=== PATIENT | female | born 1985 | race Caucasian/White ===

== ENCOUNTER 2024-11-18 12:55 | Emergency (ER) | payer OTHER, SELFPAY ==
[2024-11-18 13:11] VITALS: BP 131/85; PULSE 74; RESP 18; TEMP 36.9; O2SAT 100; BMI 22.3
--- NOTE | 2024-11-18 13:42 | ED_ITS ---
HPI - Burn/Smoke Inhalation <Shannon Gallardo PA-C - Last Filed: 11/18/24 14:12> General Chief complaint: Burn/Smoke Inhalation Stated complaint: burned right hand on pot Time Seen by Provider: 11/18/24 13:42 History of Present Illness HPI Narrative: 39-year-old female presents to the ED status post a burn injury to her right hand sustained just prior to arrival. Patient accidentally tried to lift the pot of a [employer] fleming without oven mitts, causing olson to the tips of her right digits 1,2,3 and 4. Full range of motion. Patient complains of pain to the tips of the fingers. Related Data Allergies Allergy/AdvReac Type Severity Reaction Status Date / Time No Known Drug Allergies Allergy Verified 11/18/24 13:11 Review of Systems <Shannon Gallardo PA-C - Last Filed: 11/18/24 14:12> Constitutional Constitutional: Denies chills, Denies fatigue, Denies fever(s), Denies frequent falls, Denies lethargy and Denies weakness Eyes Eyes: Denies change in vision, Denies eye discharge, Denies irritation and Denies loss of vision ENT Ears, Nose, Mouth, and Throat: Denies change in voice, Denies dizziness, Denies neck pain, Denies sore throat and Denies throat swelling Cardiovascular Cardiovascular: Denies chest pain, Denies irregular heart rhythm, Denies lightheadedness, Denies palpitations, Denies dyspnea, Denies dyspnea on exertion and Denies orthopnea Respiratory Respiratory: Denies cough, Denies dyspnea, Denies dyspnea on exertion and Denies wheezing Gastrointestinal Gastrointestinal: Denies abdominal pain, Denies change in bowel habits, Denies diarrhea, Denies nausea and Denies vomiting Musculoskeletal Musculoskeletal: Denies neck pain and Denies numbness Integumentary/Breasts Skin/Breast: Denies pruritus, Denies erythema, Denies rash and Denies wounds Comments: Burn to fingertips of right hand Neurologic Neurologic: Denies behavioral changes, Denies confusion, Denies dizziness, Denies frequent falls, Denies loss of vision, Denies numbness and Denies weakness Psychiatric Psychiatric: Denies anxiety, Denies behavioral changes, Denies confusion, Denies depression, Denies homicidal ideation and Denies suicidal ideation Endocrine Endocrine: Denies fatigue, Denies flushing and Denies palpitations Hematologic/Lymphatic Hematologic/Lymphatic: Denies easy bruising Allergic/Immunologic Allergic/Immunologic: Denies urticaria, Denies throat swelling and Denies wheezing Patient History <Shannon Gallardo PA-C - Last Filed: 11/18/24 14:12> Social History Smoking Status: Unknown if ever smoked Smoking Status: Unknown if ever smoked Exam <Shannon Gallardo PA-C - Last Filed: 11/18/24 14:12> Narrative Exam Narrative: Const General:?cooperative, healthy appearing and comfortable [facility] Head:?normal to inspection Ears:?hearing grossly normal bilaterally Nose:?external nose normal Face and sinus:?normal facial exam and sinuses nontender Mouth:?oral mucosae normal Throat:?posterior oropharynx normal Eyes General:?appearance normal, both eyes and all related structures Neck Neck:?normal visual inspection and no lymphadenopathy noted Resp Effort & Inspection:?normal respiratory effort Auscultation:?clear to auscultation bilaterally Cardio Rate:?regular rate Rhythm:?regular rhythm Integumentary Physical exam is consistent with superficial second-degree olson to digits 4, 3, 2 of the right hand as well as a first-degree burn to the tip of the thumb. Bl isters are noted in digits 4, 3, 2. These do not cross joints or creasing surfaces. FROM. Neurovascularly intact Neuro General:?patient alert, patient awake and patient oriented x3 Initial Vital Signs Initial Vital Signs: Vital Signs Temperature 98.4 F 11/18/24 13:11 Pulse Rate 74 11/18/24 13:11 Respiratory Rate 18 11/18/24 13:11 Blood Pressure 131/85 11/18/24 13:11 Pulse Oximetry 100 11/18/24 13:11 Oxygen Delivery Method Room Air 11/18/24 13:11 <Nayeli Rockwell DO - Last Filed: 11/23/24 07:52> Initial Vital Signs Initial Vital Signs: Vital Signs Temperature 98.4 F 11/18/24 13:11 Pulse Rate 74 11/18/24 13:11 Respiratory Rate 18 11/18/24 13:11 Blood Pressure 131/85 11/18/24 13:11 Pulse Oximetry 100 11/18/24 13:11 Oxygen Delivery Method Room Air 11/18/24 13:11 Course <Shannon Gallardo PA-C - Last Filed: 11/18/24 14:12> Orders Ordered: Discontinued Medications Ibuprofen (Ibuprofen 400 Mg Tablet) 800 mg PO NOW ONE Stop: 11/18/24 13:49 Last Admin: 11/18/24 13:55 Dose: 800 mg Documented By: SULY Vital Signs Vital signs: Vital Signs - 8 hr 11/18/24 13:11 Temperature 98.4 F Pulse Rate 74 Respiratory Rate 18 Blood Pressure 131/85 Pulse Oximetry 100 Oxygen Delivery Method Room Air <Nayeli Rockwell DO - Last Filed: 11/23/24 07:52> Orders Ordered: Discontinued Medications Ibuprofen (Ibuprofen 400 Mg Tablet) 800 mg PO NOW ONE Stop: 11/18/24 13:49 Last Admin: 11/18/24 13:55 Dose: 800 mg Documented By: RL Vital Signs Vital signs: Vital Signs - 8 hr 11/18/24 13:11 Temperature 98.4 F Pulse Rate 74 Respiratory Rate 18 Blood Pressure 131/85 Pulse Oximetry 100 Oxygen Delivery Method Room Air MDM - Burn/Smoke Inhalation <Shannon Gallardo PA-C - Last Filed: 11/18/24 14:12> MDM Narrative Medical decision making narrative: 39-year-old female presents to the ED status post a burn injury to her right hand sustained just prior to arrival. Physical exam is consistent with superficial second-degree olson to digits 4, 3, 2 of the right hand as well as a first-degree burn to the tip of the thumb. Blisters are noted in digits 4, 3, 2. These do not cross joints or creasing surfaces. Patient's wounds were dressed in Xeroform and nonstick dressing. Recommend continuing same wound care. Patient was given ibuprofen for pain. Recommend continuing ibuprofen. Signs of infection discussed with patient. Patient verbalized understanding. ED return precautions discussed with patient. Patient verbalized understanding. Medical records reviewed: Yes Discharge Plan Departure Patient Disposition: Home Clinical Impression: Burn of hand Qualifiers: Encounter type: initial encounter Burn of hand location: multiple sites Laterality: right Burn degree: partial thickness (2nd degree) Qualified Code(s): T23.201A - Burn of second degree of right hand, unspecified site, initial encounter Instructions: DI for Olson Activity Restrictions/Additional Instructions: Were evaluated in the ED today for a burn injury to your right hand. You have some superficial second-degree olson which will tend to blister and then he will spontaneously. Please keep the blisters intact as much as possible since they aid in healing. You may apply Xeroform followed by a nonstick dressing and a bandage to keep the wound moist for better healing. You may take ibuprofen or Tylenol for pain control. Please watch for signs of infection including worsening redness, warmth, discharge, pain, swelling. Return to the ED if you note any signs of infection. Stand Alone Forms: Patient Portal/API/Survey ED Sign-out <Nayeli Rockwell DO - Last Filed: 11/23/24 07:52> Cosign ED Attending Bri Attestation: I was immediately available in the department for consultation.
[2024-11-18] MEDS: IBUPROFEN 400 MG TABLET 800 MG PO (13:55)
== END 2024-11-18 14:18 | disposition home or self-care (01) ==
PROVIDERS: Emergency Provider Student in an Organized Health Care Education/Training Program
DX: T23.241A Burn of second degree of multiple right fingers (nail), including thumb, initial encounter (principal); X13.1XXA Other contact with steam and other hot vapors, initial encounter
CPT/HCPCS: 99283

== ENCOUNTER 2024-12-26 11:11 | Emergency (ER) | payer OTHER, SELFPAY ==
[2024-12-26 11:44] VITALS: BP 112/56; PULSE 72; RESP 20; TEMP 36.6; O2SAT 100; BMI 21.2
--- NOTE | 2024-12-26 13:17 | DI.CT.S_ITS ---
PROCEDURE: CT SOFT TISSUE NECK W CON INDICATIONS: max / facial for parotid mass, worsening ear pain, opening j TECHNIQUE: After the administration of intravenous contrast, 3.0 mm axial sections acquired from the sella to the aortic arch. Additional oblique axial 3.0 mm sections acquired through the pharynx. 3 mm thick coronal and sagittal reformats were generated. For radiation dose reduction, the following was used: automated exposure control. COMPARISON: None. FINDINGS: Image quality: Excellent. Lymph nodes: No enlarged lymph nodes seen throughout the neck. Vessels: Visualized vasculature appears patent. Neck spaces: The oropharynx, nasopharynx, and pharynx demonstrate no mucosal lesions. The vocal cords, false vocal cords, pyriform sinuses, epiglottis, vallecula, and tongue base all appear normal. Extramucosal spaces appear unremarkable. Glands: The parotid and submandibular glands appear normal. Thyroid gland is unremarkable. Miscellaneous: Visualized brain and orbits appear normal. Lung apices appear clear. Superficial soft tissues appear normal. Bones: No suspicious bony lesions. Visualized sinuses and mastoids appear unremarkable. IMPRESSION: Parotid glands are symmetrical without associated inflammatory change. Dictated by: Gypsy Durand M.D. on 12/26/2024 at 14:25 Approved by: Gypsy Durand M.D. on 12/26/2024 at 14:28
[2024-12-26] MEDS: DEXAMETHASONE 4 MG/ML VIAL IV (13:39)
[2024-12-26] MEDS: KETOROLAC 30 MG/ML VIAL 15 MG IV (13:39)
[2024-12-26] MEDS: SODIUM CHLORIDE 0.9% 1,000 ML 1000 ML IV (13:39)
[2024-12-26 13:51] LABS: Add Manual Diff / Slide Review NO; Basophils Absolute Auto 0 /uL (0-100); Basophils Percent Auto 0.9 % (0-2); Eosinophils Absolute Auto 100 /uL (0-450); Hematocrit 39.8 % (36-46); Hemoglobin 13.7 g/dL (12.0-16.0); Lymphocytes Absolute Auto 1700 /uL (1100-4500); Lymphocytes Percent Auto 34.7 % (25-40); Mean Corpuscular HGB Conc 34.6 % (30-36); Mean Corpuscular Hemoglobin 30.8 PG (26-34); Monocytes Absolute Auto 300 /uL (0-900); Monocytes Percent Auto 5.9 % (3-14); Neutrophils Absolute Auto 2800 /uL (1500-7000); Neutrophils Percent Auto 57.5 % (50-75); Platelet Count 244 X10^3/uL (150-400); Red Blood Cell Count 4.47 X10^6/uL (4.0-5.2); Red Cell Distribution Width 12.5 % (11.6-14.8); White Blood Cell Count 4.9 X10^3/uL (4.5-11.0)
[2024-12-26 14:01] LABS: Alanine Aminotransferase 18 IU/L (<35); Albumin 4.6 g/dL (3.5-5.0); Albumin Globulin Ratio 1.8 (1.0-2.8); Alkaline Phosphatase 38 U/L (38-126); Aspartate Aminotransferase 25 IU/L (14-36); BUN Creatinine Ratio 16.7 (6-22); Bilirubin Total 0.5 mg/dL (0.2-1.3); Blood Urea Nitrogen 12 mg/dL (7-17); Calcium 9.6 mg/dL (8.4-10.2); Carbon Dioxide 28 mmol/L (22-32); Chloride 102 mmol/L (98-107); Estimated Glomerular Filt Rate > 60 mL/min (>60); Globulin 2.6 g/dL (1.7-4.1); Glucose 99 mg/dL (70-100); HEMOLYSIS < 15 (0-50); Lipase 142 U/L (23-300); Potassium 4.2 mmol/L (3.4-5.1); Sodium 138 mmol/L (137-145); Total Protein 7.2 g/dL (6.3-8.2)
--- NOTE | 2024-12-26 15:13 | CM.MNRNOTE ---
Patient reports she is getting over covid which she had 2 weeks ago and she reports she thinks she got a secondary infection in her left ear/throat area. When she went to her PCP yesterday she states her PCP looked in her throat and noted a mass in my parotid gland. They told her to come here for a CT as they were very concerned. She reports she has had left ear pain and left face/jaw/throat pain for the last week and since yesterday felt some thing stab in left ear and it started draining fluid. States I think my ear drum ruptured.
[2024-12-26 15:18] LABS: Monotest Negative (Negative)
[2024-12-26 15:21] LABS: Strep Grp A by PCR Rapid Negative (Negative)
--- NOTE | 2024-12-26 16:33 | ED_ITS ---
HPI - Skin/Abscess/Foreign Bdy General Chief complaint: Skin/Abscess/Foreign Body Stated complaint: Protid mass LT of neck; ear drum may have rupture Time Seen by Provider: 12/26/24 15:38 Source: patient Mode of arrival: Ambulatory Limitations: no limitations History of Present Illness HPI narrative: 39-year-old female history of hypothyroidism, tonsilectomy seen 3 weeks ago at urgent care diagnosed with COVID then and also seen yesterday by PCP given Augmentin for left ear infection and also ear wax presents with continued neck swelling and difficulty swallowing since she contracted COVID 3 weeks ago. Other than what is stated 14 point review of systems Related Data Home Medications Medication Instructions Recorded Confirmed fluoxetine 10 mg capsule mg PO 12/01/24 12/01/24 levothyroxine 50 mcg tablet 50 mcg PO DAILY 12/01/24 12/01/24 (Synthroid) Previous Rx's Medication Instructions Recorded carbamide peroxide 6.5 % ear drops 5 drp EAR-LEFT BID #15 mL 12/26/24 (Debrox) prednisone 20 mg tablet 20 mg PO DAILY #5 tabs 12/26/24 Allergies Allergy/AdvReac Type Severity Reaction Status Date / Time No Known Drug Allergies Allergy Verified 12/01/24 10:15 Review of Systems Review of Systems ROS Unobtainable: All systems reviewed & are unremarkable except as noted in HPI and below Patient History Social History Smoking Status: Never smoker Smoking Status: Never smoker Exam Narrative Exam Narrative: GENERAL: 39F year old patient appears stated age. Well-developed patient, in mild distress. HEAD: Atraumatic. Normocephalic. EYES: Pupils equal round and reactive. Extraocular motions intact. No scleral icterus. No injection or drainage. ENT: Nose without bleeding, purulent drainage. Throat without erythema, tonsillar hypertrophy or exudate. Airway patent. Submandibular lymphadenopathy, L ear cerumen impaction NECK: Trachea midline. Non tender CARDIOVASCULAR: Regular rate and rhythm without murmurs, gallops, or rubs. RESPIRATORY: Clear to auscultation. Breath sounds equal bilaterally. No wheezes, rales, or rhonchi. GASTROINTESTINAL: Abdomen soft, non-tender, nondistended. EXTREMITIES: No edema or joint tenderness. BACK: Nontender without deformity or crepitance. No flank tenderness. NEURO: AOx3. SKIN: No rash or erythema of visible areas Initial Vital Signs Initial Vital Signs: Vital Signs Temperature 98 F 12/26/24 11:44 Pulse Rate 72 12/26/24 11:44 Respiratory Rate 20 12/26/24 11:44 Blood Pressure 112/56 L 12/26/24 11:44 Pulse Oximetry 100 12/26/24 11:44 Oxygen Delivery Method Room Air 12/26/24 11:44 Course Orders Ordered: ED Orders 12/26/24 13:14 Comprehensive Metabolic Panel Stat Lipase Stat 12/26/24 13:17 CT soft tissue neck w con Stat 12/26/24 13:29 Complete Blood Count AUTO DIFF Stat 12/26/24 14:01 Monotest Stat 12/26/24 14:58 Strep Grp A by PCR Rapid Stat Discontinued Medications Dexamethasone (Dexamethasone 4 Mg/Ml Vial) 4 mg IV NOW ONE Stop: 12/26/24 13:24 Last Admin: 12/26/24 13:39 Dose: 4 mg Documented By: ADINA Sodium Chloride (Normal Saline 0.9%) 1,000 mls @ 1,000 mls/hr IV BOLUS ONE Stop: 12/26/24 14:22 Last Infusion: 12/26/24 14:36 Dose: Infused Documented By: Admin: 12/26/24 13:39 Dose: 1,000 mls/hr Documented By: ADINA Ketorolac Tromethamine (Ketorolac 30 Mg/Ml Vial) 15 mg IV NOW ONE Stop: 12/26/24 13:24 Last Admin: 12/26/24 13:39 Dose: 15 mg Documented By: ADINA Vital Signs Vital signs: Vital Signs - 8 hr 12/26/24 11:44 Temperature 98 F Pulse Rate 72 Respiratory Rate 20 Blood Pressure 112/56 L Pulse Oximetry 100 Oxygen Delivery Method Room Air MDM - Skin/Abscess/Foreign Bdy Lab Data 12/26/24 13:29 12/26/24 13:14 Labs: Lab Results 12/26/24 12/26/24 12/26/24 Range/Units 13:14 13:29 14:01 WBC 4.9 (4.5-11.0) X10^3/uL RBC 4.47 (4.0-5.2) X10^6/uL Hgb 13.7 (12.0-16.0) g/dL Hct 39.8 (36-46) % MCV 89.0 (80-100) fL MCH 30.8 (26-34) PG MCHC 34.6 (30-36) % RDW 12.5 (11.6-14.8) % Plt Count 244 (150-400) X10^3/uL Neut % (Auto) 57.5 (50-75) % Lymph % (Auto) 34.7 (25-40) % Bradford % (Auto) 5.9 (3-14) % Eos % (Auto) 1.0 L (2-4) % Baso % (Auto) 0.9 (0-2) % Neut # (Auto) 2800 (5139-8752) /uL Lymph # (Auto) 1700 (5873-2797) /uL Bradford # (Auto) 300 (0-900) /uL Eos # (Auto) 100 (0-450) /uL Baso # (Auto) 0 (0-100) /uL Sodium 138 (137-145) mmol/L Potassium 4.2 (3.4-5.1) mmol/L Chloride 102 (98-107) mmol/L Carbon Dioxide 28 (22-32) mmol/L BUN 12 (7-17) mg/dL Creatinine 0.72 (0.52-1.04) mg/dL Estimated GFR > 60 (>60) mL/min BUN/Creatinine Ratio 16.7 (6-22) Glucose 99 (70-100) mg/dL Calcium 9.6 (8.4-10.2) mg/dL Total Bilirubin 0.5 (0.2-1.3) mg/dL AST 25 (14-36) IU/L ALT 18 (<35) IU/L Alkaline Phosphatase 38 (38-126) U/L Total Protein 7.2 (6.3-8.2) g/dL Albumin 4.6 (3.5-5.0) g/dL Globulin 2.6 (1.7-4.1) g/dL Albumin/Globulin Ratio 1.8 (1.0-2.8) Lipase 142 (23-300) U/L Monoscreen Negative (Negative) Group A Strep (PCR) (Negative) 12/26/24 Range/Units 14:58 WBC (4.5-11.0) X10^3/uL RBC (4.0-5.2) X10^6/uL Hgb (12.0-16.0) g/dL Hct (36-46) % MCV (80-100) fL MCH (26-34) PG MCHC (30-36) % RDW (11.6-14.8) % Plt Count (150-400) X10^3/uL Neut % (Auto) (50-75) % Lymph % (Auto) (25-40) % Bradford % (Auto) (3-14) % Eos % (Auto) (2-4) % Baso % (Auto) (0-2) % Neut # (Auto) (8494-2734) /uL Lymph # (Auto) (2973-0560) /uL Bradford # (Auto) (0-900) /uL Eos # (Auto) (0-450) /uL Baso # (Auto) (0-100) /uL Sodium (137-145) mmol/L Potassium (3.4-5.1) mmol/L Chloride (98-107) mmol/L Carbon Dioxide (22-32) mmol/L BUN (7-17) mg/dL Creatinine (0.52-1.04) mg/dL Estimated GFR (>60) mL/min BUN/Creatinine Ratio (6-22) Glucose (70-100) mg/dL Calcium (8.4-10.2) mg/dL Total Bilirubin (0.2-1.3) mg/dL AST (14-36) IU/L ALT (<35) IU/L Alkaline Phosphatase (38-126) U/L Total Protein (6.3-8.2) g/dL Albumin (3.5-5.0) g/dL Globulin (1.7-4.1) g/dL Albumin/Globulin Ratio (1.0-2.8) Lipase (23-300) U/L Monoscreen (Negative) Group A Strep (PCR) Negative (Negative) Imaging Data CT scan - head: Radiologist's Impression: [address] [address] [address] Scan Report Signed Patient: Reina Plata MR#: [id number] : 1985 Acct:[id number] Age/Sex: 39 / F Date of Service: 12/26/24 Loc: ED Accession Number: [id number] Procedure: CT soft tissue neck w con Ordering Provider: Nabil Morales D.O. PROCEDURE: CT SOFT TISSUE NECK W CON INDICATIONS: max / facial for parotid mass, worsening ear pain, opening j TECHNIQUE: After the administration of intravenous contrast, 3.0 mm axial sections acquired from the sella to the aortic arch. Additional oblique axial 3.0 mm sections acquired through the pharynx. 3 mm thick coronal and sagittal reformats were generated. For radiation dose reduction, the following was used: automated exposure control. COMPARISON: None. FINDINGS: Image quality: Excellent. Lymph nodes: No enlarged lymph nodes seen throughout the neck. Vessels: Visualized vasculature appears patent. Neck spaces: The oropharynx, nasopharynx, and pharynx demonstrate no mucosal lesions. The vocal cords, false vocal cords, pyriform sinuses, epiglottis, vallecula, and tongue base all appear normal. Extramucosal spaces appear unremarkable. Glands: The parotid and submandibular glands appear normal. Thyroid gland is unremarkable. Miscellaneous: Visualized brain and orbits appear normal. Lung apices appear clear. Superficial soft tissues appear normal. Bones: No suspicious bony lesions. Visualized sinuses and mastoids appear unremarkable. IMPRESSION: Parotid glands are symmetrical without associated inflammatory change. MDM Narrative Medical decision making narrative: All lab work and CT scan reviewed including nurse triage note medication list vital signs and previous ER visits. Patient given Debrox ear drops and prednisone 60 mg here and will be discharged on prednisone prescription for 5 days differential diagnosis includes post acute COVID syndrome strep mono and salivary duct stone. Return with new or worsening symptoms Discharge Plan Departure Patient Disposition: Home Clinical Impression: Acute lymphangitis of submandibular region Instructions: DI for Lymphadenopathy Activity Restrictions/Additional Instructions: Return with new or worsening symptoms take your medicines as directed. Prescriptions: New prednisone 20 mg tablet 20 mg PO DAILY Qty: 5 0RF Debrox 6.5 % drops 5 drp EAR-LEFT BID Qty: 15 0RF Rx Instructions: 5 drp into left ear No Action fluoxetine 10 mg capsule PO Patient Comments: [NO ORIGINAL SIG] levothyroxine [Synthroid] 50 mcg tablet 50 mcg PO DAILY Referrals: Elsa Salazar ARNP [Primary Care Provider] - Stand Alone Forms: Patient Portal/API/Survey
[2024-12-26] MEDS: CARBAMIDE PEROXIDE OTIC 15 ML 4 DROPS EAR-LEFT (17:10)
[2024-12-26 17:18] VITALS: BP 119/89; PULSE 75; RESP 17; O2SAT 97
== END 2024-12-26 17:19 | disposition home or self-care (01) ==
PROVIDERS: Emergency Provider Family Medicine; PCP Nurse Practitioner Family
DX: L03.212 Acute lymphangitis of face (principal)
CPT/HCPCS: 36415; 70491; 80053; 83690; 85025; 86318; 87651; 96361; 96374; 96375; 99284; J1100; J1885; Q9967

== ENCOUNTER → 2025-01-05 07:40 | Outpatient (CLI) | payer OTHER, SELFPAY ==
--- NOTE | 2025-01-05 07:41 | DI.US.S_ITS ---
PROCEDURE: US PELVIC COMPLETE INDICATIONS: heavy menstrual bleeding; r/o anatomic causes TECHNIQUE: Real-time scanning was performed of the pelvic organs, with image documentation. Additional endovaginal scanning was necessary due to incomplete visualization of the adnexal and endometrial structures by transabdominal scanning. COMPARISON: None. FINDINGS: Uterus: Uterus is anteverted and normal in size at 8.4 x 4.3 x 5.8 cm. The myometrium is homogeneous. The endometrium measures 17.3 mm combined thickness. Ovaries: The right ovary measures 3.6 x 4.5 x 1.2 cm, with a calculated ovarian volume of 10.3 cc. The left ovary measures 2.1 x 2.9 x 1.8 cm, with a calculated ovarian volume of 5.5 cc. Regressing right physiologic ovarian cyst measuring 1.8 cm. Simple left cyst measuring 1.5 cm. . Less than 12 follicles can be seen in each ovary. No adnexal masses are seen. Other: No pathologic free abdominal or pelvic fluid. IMPRESSION: 1. Endometrial complex upper limits of normal at 17.3 mm. Recommend short-term follow-up pelvic ultrasound in proliferative phase of menses to assess for temporal thinning. 2. Regressing right physiologic ovarian cyst and simple left ovarian cyst measuring 1.5 cm. We strive to produce accurate, complete, and clear reports of imaging services. To assist us in improving patient care, this report was composed using standard report templates and voice recognition software. Therefore, it may contain abnormal punctuation, insertions and/or omissions. Occasional wrong-word or sound-alike substitutions may occur. Though we review the report and make efforts to correct it, we do recommend that the report be read carefully in proper context to recognize any text inaccuracies. Dictated by: Walt NAVA Interpreted: Gypsy Durand MD on 01/05/2025 at 10:06 Transcribed by: ARI on 01/05/2025 at 10:08 Approved by: Gypsy Durand M.D. on 01/06/2025 at 7:22
== END ==
LOC: US 07:40
PROVIDERS: PCP Nurse Practitioner Family; Referring Provider Student in an Organized Health Care Education/Training Program; Visit Provider Student in an Organized Health Care Education/Training Program
DX: N92.0 Excessive and frequent menstruation with regular cycle (principal); N83.292 Other ovarian cyst, left side; N83.291 Other ovarian cyst, right side
CPT/HCPCS: 76830; 76856